=== PATIENT | male | born 1985 | race Caucasian/White ===

== ENCOUNTER 2022-03-19 12:10 | Emergency (ER) | payer SELFPAY ==
[~2022-03-19] VITALS: Ht 180 cm; Wt 83.0 kg
[2022-03-19 12:23] LABS: BASOPHILS # (AUTO) 0.1 10^3/uL (0.0-0.1); BASOPHILS % (AUTO) 1 % (0-10); EOSINOPHILS # (AUTO) 0.2 10^3/uL (0.0-0.3); EOSINOPHILS % (AUTO) 2 % (0-10); HEMATOCRIT 43 % (40-54); HEMOGLOBIN 15.4 g/dL (13.3-17.7); LYMPHOCYTES # (AUTO) 1.8 10^3/uL (1.0-4.0); LYMPHOCYTES % (AUTO) 22 % (12-44); MEAN CORPUSCULAR HEMOGLOBIN 30 pg (25-34); MEAN CORPUSCULAR HGB CONC 36 g/dL (32-36); MEAN CORPUSCULAR VOLUME 85 fL (80-99); MEAN PLATELET VOLUME 9.5 fL (9.0-12.2); MONOCYTES # (AUTO) 0.7 10^3/uL (0.0-1.0); MONOCYTES % (AUTO) 8 % (0-12); NEUTROPHILS # (AUTO) 5.4 10^3/uL (1.8-7.8); NEUTROPHILS % (AUTO) 67 % (42-75); PLATELET COUNT 293 10^3/uL (130-400); WHITE BLOOD COUNT 8.1 10^3/uL (4.3-11.0)
--- NOTE | 2022-03-19 12:23 | ED Chest Pain ---
General Stated Complaint: CHEST PAIN; HEAT EXPOSURE Source: patient Exam Limitations: no limitations History of Present Illness Date Seen by Provider: March 19, 2022 Time Seen by Provider: 12:10 Initial Comments Patient presents ER by private conveyance with significant other chief complaint that he was at work outside today and started getting some belly pain nausea sweating and for a bottle water and himself because he thought he was having heat exhaustion. He is never had that before. He is never had any heart disease. He does have hypertension but does not take any medicines for it nor follow-up with a doctor. He is a daily smoker and uses some cannabis and states he occasionally uses stimulants. He has not urinated much today. He does not have a history of GERD but he does have a pain in his chest pointing to his epigastric region osei and radiates upwards and he was starting to have some tingling in his left arm and hand. No primary family early onset coronary disease. No diabetes or hyperlipidemia. Allergies and Home Medications Allergies Coded Allergies: No Known Drug Allergies (Unverified , 03/19/22) Patient Home Medication List Home Medication List Reviewed: Yes Review of Systems Review of Systems Constitutional: No chills, No diaphoresis EENTM: No Blurred Vision, No Double Vision Respiratory: Denies Cough, Denies Shortness of Air Cardiovascular: See HPI, Chest Pain; Denies Edema; Lightheadedness Gastrointestinal: See HPI; Denies Abdomen Distended; Abdominal Pain; Denies Constipated, Denies Diarrhea; Nausea; Denies Poor Fluid Intake, Denies Vomiting Genitourinary: Denies Burning, Denies Discharge Musculoskeletal: No back pain, No joint pain All Other Systems Reviewed Negative Unless Noted: Yes Past Vzjpkzf-Iukpch-Peqnoz Hx Patient Social History Tobacco Use?: Yes Tobacco type used: Cigarettes Use of E-Cig and/or Vaping dev: No Substance use?: Yes Physical Exam Vital Signs Vital Signs - First Documented 03/19/22 12:13 Temp 36.7 Pulse 83 Resp 20 B/P (MAP) 146/72 (96) Pulse Ox 100 O2 Delivery Room Air Capillary Refill : Height, Weight, BMI Height: '" Weight: lbs. oz. kg; BMI Method: General Appearance: WD/WN, Mild Distress HEENT: PERRL/EOMI, Normal ENT Inspection; No Moist Mucous Membranes (Dry oral mucosa without lesion or) Neck: Full Range of Motion, Normal Inspection, Non Tender Respiratory: Lungs Clear, Normal Breath Sounds, No Accessory Muscle Use, No Respiratory Distress Cardiovascular: Regular Rate, Rhythm, No Edema, Normal Peripheral Pulses Gastrointestinal: Normal Bowel Sounds (Quiescent), No Organomegaly, Non Tender, Soft Extremity: Normal Capillary Refill, Normal Inspection, Normal Range of Motion, Non Tender Neurologic/Psychiatric: Alert, Oriented x3 Skin: Rash (Erythematous blanchable skin, warm and dry) Progress/Results/Core Measures Results/Orders Lab Results Laboratory Tests Test 03/19/22 12:18 Range/Units White Blood Count 8.1 4.3-11.0 10^3/uL Red Blood Count 5.06 4.30-5.52 10^6/uL Hemoglobin 15.4 13.3-17.7 g/dL Hematocrit 43 40-54 % Mean Corpuscular Volume 85 80-99 fL Mean Corpuscular Hemoglobin 30 25-34 pg Mean Corpuscular Hemoglobin Concent 36 32-36 g/dL Red Cell Distribution Width 11.9 10.0-14.5 % Platelet Count 293 130-400 10^3/uL Mean Platelet Volume 9.5 9.0-12.2 fL Immature Granulocyte % (Auto) 0 % Neutrophils (%) (Auto) 67 42-75 % Lymphocytes (%) (Auto) 22 12-44 % Monocytes (%) (Auto) 8 0-12 % Eosinophils (%) (Auto) 2 0-10 % Basophils (%) (Auto) 1 0-10 % Neutrophils # (Auto) 5.4 1.8-7.8 10^3/uL Lymphocytes # (Auto) 1.8 1.0-4.0 10^3/uL Monocytes # (Auto) 0.7 0.0-1.0 10^3/uL Eosinophils # (Auto) 0.2 0.0-0.3 10^3/uL Basophils # (Auto) 0.1 0.0-0.1 10^3/uL Immature Granulocyte # (Auto) 0.0 0.0-0.1 10^3/uL Prothrombin Time 13.2 12.2-14.7 SEC INR Comment 1.0 0.8-1.4 Activated Partial Thromboplast Time 27 24-35 SEC Sodium Level 135 135-145 MMOL/L Potassium Level 3.7 3.6-5.0 MMOL/L Chloride Level 100 98-107 MMOL/L Carbon Dioxide Level 21 21-32 MMOL/L Anion Gap 14 5-14 MMOL/L Blood Urea Nitrogen 23 H 7-18 MG/DL Creatinine 1.03 0.60-1.30 MG/DL Estimat Glomerular Filtration Rate 97 BUN/Creatinine Ratio 22 Glucose Level 103 70-105 MG/DL Calcium Level 9.8 8.5-10.1 MG/DL Corrected Calcium 8.5-10.1 MG/DL Magnesium Level 1.7 1.6-2.4 MG/DL Total Bilirubin 0.6 0.1-1.0 MG/DL Aspartate Amino Transf (AST/SGOT) 16 5-34 U/L Alanine Aminotransferase (ALT/SGPT) 15 0-55 U/L Alkaline Phosphatase 66 40-136 U/L Myoglobin 38.4 10.0-92.0 NG/ML Troponin I < 0.30 <0.30 NG/ML Total Protein 7.2 6.4-8.2 GM/DL Albumin 4.7 H 3.2-4.5 GM/DL Lipase 19 8-78 U/L My Orders Orders - ANABEL ANDERSON Cbc With Automated Diff (03/19/22 12:16) Magnesium (03/19/22 12:16) Chest 1 View Ap/Pa Only (03/19/22 12:16) Ekg Tracing (03/19/22 12:16) Comprehensive Metabolic Panel (03/19/22 12:16) Myoglobin Serum (03/19/22 12:16) Protime With Inr (03/19/22 12:16) Partial Thromboplastin Time (03/19/22 12:16) O2 (03/19/22 12:16) Monitor-Rhythm Ecg Trace Only (03/19/22 12:16) Lipid Panel (03/20/22 06:00) Aspirin Chewable Tablet (Baby Aspirin Ch (03/19/22 12:30) Ed Iv/Invasive Line Start (03/19/22 12:16) Lipase (03/19/22 12:16) Troponin I Fs (03/19/22 12:16) Ed Iv/Invasive Line Start (03/19/22 12:16) Lactated Ringers (Lr 1000 Ml Iv Solution (03/19/22 12:30) Lactated Ringers (Lr 1000 Ml Iv Solution (03/19/22 12:30) Pantoprazole Injection (Protonix Injecti (03/19/22 12:30) Ondansetron Injection (Zofran Injectio (03/19/22 12:30) Medications Given in ED Current Medications Medications Dose Ordered Sig/Eulogio Route Start Time Stop Time Status Last Admin Dose Admin Aspirin 324 mg ONCE ONCE PO 03/19/22 12:30 03/19/22 12:31 DC 03/19/22 12:24 324 MG Lactated Ringer's 1,000 ml @ 0 mls/hr Q0M ONCE IV 03/19/22 12:30 03/19/22 12:31 DC 03/19/22 12:24 999 MLS/HR Lactated Ringer's 1,000 ml @ 0 mls/hr Q0M ONCE IV 03/19/22 12:30 03/19/22 12:31 DC 03/19/22 13:25 1,000 MLS/HR Ondansetron HCl 8 mg ONCE ONCE IVP 03/19/22 12:30 03/19/22 12:31 DC 03/19/22 12:24 8 MG Pantoprazole 40 mg ONCE ONCE IV 03/19/22 12:30 03/19/22 12:31 DC 03/19/22 12:24 40 MG Vital Signs/I&O 03/19/22 12:13 Temp 36.7 Pulse 83 Resp 20 B/P (MAP) 146/72 (96) Pulse Ox 100 O2 Delivery Room Air Progress Progress Note #1: Time: 12:21 Progress Note Despite pouring water on himself he has no sweat on his forehead, arms or elsewhere. He does look like he had a heat injury. He is neurologically intact. His vital signs are okay with a heart rate in the 60s and a good blood pressure of 146/72 on presentation. He is not having any difficulty breathing. We will give him some aspirin and work him up for his heart however we will continue to treat his evident heat exhaustion with a couple liters of fluid. Chest x-ray. Electrolytes and labs. Pantoprazole for his burning sensation and ondansetron for his nausea. We will try GI cocktail after his nausea is under control. Progress Note #2: Time: 13:17 Progress Note After the pantoprazole he says his burning pain is gone. His nausea is gone and he is feeling much better. Again we will let him have another liter of fluids as he has not even had the urge to urinate yet. Will encourage him to follow-up with cardiology outpatient in a couple weeks if his delta troponin is negative. 1 points HEART Pathway Score. Low risk; 0.9-1.7% 30-day MACE Progress Note #3: Time: 13:58 Progress Note Patient states his symptoms are gone he is feeling much better and he would like to go home. He was explained that we would not be able to rule out significant coronary disease without a second troponin but he does not want to wait any longer. He was taken down to the bathroom to provide a urine specimen for drug screen for his work and came back stating he declined to do this and they will just wants to go home. We did discuss risks benefits and alternatives to leaving at this time and encouraged him to follow-up with a conductor pullman for an outpatient work-up. We provided him with an opportunity for some nausea medici carol to be sent to the pharmacy which he declined. He has gotten his total 2 L of fluids. We did reinforce the plan for him to take it easy for the next couple days and drink plenty of fluids. Return precautions were discussed. Initial ECG Impression Date: March 19, 2022 Initial ECG Impression Time: 12:14 Initial ECG Rate: 74 Initial ECG Rhythm: Normal Sinus Initial ECG Intervals: Normal Initial ECG Impression: Normal Initial ECG Comparisson: No Previous ECG Available Comment Normal sinus rhythm without clinically relevant ST elevation or depression Diagnostic Imaging Diagonstic Imaging: Xray Plain Films/CT/US/NM/MRI: chest Comments [facility] [place] [place] NAME: VALERIE CANCINO [facility] REC#: [id number] PT STATUS: REG ER : 1985 PHYSICIAN: ANABEL ANDERSON MD ADMIT DATE: 03/19/22/ER FS Signed Date of Exam:03/19/22 CHEST 1 VIEW AP/PA ONLY EXAMINATION: Chest 1 view HISTORY: Chest pain. Heat exhaustion. COMPARISON: None available. FINDINGS: The lung volumes are normal. No focal consolidation is seen. No large pleural effusion or pneumothorax is seen. The cardiomediastinal silhouette is normal in size and contour. No acute osseous abnormality is seen. IMPRESSION: 1. No acute pleuroparenchymal process. Dictated by: Dictated on workstation # [id number] Dict: 03/19/22 1244 Trans: 03/19/22 1249 [id number] Interpreted by: VADIM THOMAS DO Electronically signed by: VADIM THOMAS DO 03/19/22 1249 Reviewed: Reviewed by Me Departure Impression Primary Impression: Heat exhaustion Qualified Codes: T67.5XXA - Heat exhaustion, unspecified, initial encounter Additional Impression: Chest pain Qualified Codes: R07.9 - Chest pain, unspecified Disposition: 07 AGAINST MEDICAL ADVICE Condition: Against Medical Advice Departure-Patient Inst. Decision time for Depature: 13:59 Referrals: MEREDITH MELENDEZ MD [facility] NO,LOCAL PHYSICIAN (PCP) Primary Care Physician Patient Instructions: Heat Exhaustion and Heat Stroke (DC) Add. Discharge Instructions: Drink plenty of fluids. Sports drink such as Gatorade or Powerade are recommended. For the next 2 to 3 days you should stay in and take it easy while your body recovers. Follow-up in 1 to 2 weeks with a conductor pullman, Dr. Melendez by calling his clinic for an appointment to further evaluate the pain you are feeling in your chest. Return to the ER at anytime for further management of symptoms especially if they get worse or you develop more chest pain, shortness of air, or other worrisome symptoms. Work/School Note: Work Release Form Date Seen in the Emergency Department: March 19, 2022 Return to Work: March 24, 2022 Restrictions: No Restrictions Copy Copies To 1: MEREDITH MELENDEZ MD [facility] ANABEL ANDERSON March 19, 2022 12:23
[2022-03-19] MEDS ORDERED: LACTATED RINGERS 1,000 ML IV ONE ×2 (12:30)
[2022-03-19] MEDS ORDERED: PANTOPRAZOLE 40 MG (PROTONIX) VIAL IV ONE (12:30)
[2022-03-19] MEDS ORDERED: ONDANSETRON 4 MG/2 ML (SDV) Z0FRAN IVP ONE (12:30)
[2022-03-19] MEDS ORDERED: ASPIRIN 81 MG CHEW (CHILDREN'S ASA) PO ONE (12:30)
[2022-03-19 12:40] LABS: PROTHROMBIN TIME PATIENT 13.2 SEC (12.2-14.7)
--- NOTE | 2022-03-19 12:46 | Diagnostic Imaging Report ---
EXAMINATION: Chest 1 view HISTORY: Chest pain. Heat exhaustion. COMPARISON: None available. FINDINGS: The lung volumes are normal. No focal consolidation is seen. No large pleural effusion or pneumothorax is seen. The cardiomediastinal silhouette is normal in size and contour. No acute osseous abnormality is seen. IMPRESSION: 1. No acute pleuroparenchymal process. Dictated by: Dictated on workstation # [id number]
[2022-03-19 12:48] LABS: ALANINE AMINOTRANSFERASE 15 U/L (0-55); ALBUMIN 4.7 GM/DL (3.2-4.5); ALKALINE PHOSPHATASE 66 U/L (40-136); BILIRUBIN,TOTAL 0.6 MG/DL (0.1-1.0); BUN/CREATININE RATIO 22; CALCIUM 9.8 MG/DL (8.5-10.1); CARBON DIOXIDE 21 MMOL/L (21-32); CHLORIDE 100 MMOL/L (98-107); CREATININE SERUM 1.03 MG/DL (0.60-1.30); GFR ESTIMATED 97; GLUCOSE 103 MG/DL (70-105); MAGNESIUM 1.7 MG/DL (1.6-2.4); POTASSIUM 3.7 MMOL/L (3.6-5.0); SODIUM 135 MMOL/L (135-145); TOTAL PROTEIN 7.2 GM/DL (6.4-8.2)
[2022-03-19 12:49] LABS: LIPASE 19 U/L (8-78)
[2022-03-19 13:59] VITALS: BP 137/81
== END 2022-03-19 14:02 | disposition left against medical advice (07) ==
LOC: ER FS 12:12
DX: T67.5XXA Heat exhaustion, unspecified, initial encounter (principal); R07.89 Other chest pain; F17.210 Nicotine dependence, cigarettes, uncomplicated; X30.XXXA Exposure to excessive natural heat, initial encounter
CPT/HCPCS: 36415; 71045; 80053; 83690; 83735; 83874; 84484; 85025; 85610; 85730; 93005; 93041

== ENCOUNTER 2022-04-05 18:41 | Emergency (ER) | payer SELFPAY ==
[~2022-04-05] VITALS: Ht 177.8 cm; Wt 81.6 kg
[2022-04-05] MEDS ORDERED: NS IV 1000 ML 1,000 ML IV STA (18:56)
--- NOTE | 2022-04-05 18:59 | ED Chest Pain ---
General Stated Complaint: SOB/STOMACH BURNING/JAW PAIN Source: patient Exam Limitations: no limitations History of Present Illness Date Seen by Provider: April 05, 2022 Time Seen by Provider: 18:57 Initial Comments Patient is a 36-year-old male who presents ED with chest pain shortness of breath and anxiety. Patient states symptoms started 45 minutes ago while at home. He states he just got off work. Patient states he snorted "speed" which she has taken in the past. History of amphetamine use. Patient started having sharp chest pain with shortness of breath. States he feels anxious and having a panic attack. Patient was tachycardic on arrival. reports history of hypertension. History of smoking. Denies of any nausea, vomiting, abdominal pain, fever, visual changes. Patient states he feels "off". Patient states he bought the drug. Not sure if the medication is laced with any other stimulants. Allergies and Home Medications Allergies Coded Allergies: No Known Drug Allergies (Unverified , 03/19/22) Patient Home Medication List Home Medication List Reviewed: Yes Review of Systems Review of Systems Constitutional: No chills, No diaphoresis EENTM: No Blurred Vision, No Eye Pain Respiratory: Denies Cough, Denies Orthopnea; Shortness of Air Cardiovascular: Chest Pain; Denies Edema, Denies Irregular Heart Rate Gastrointestinal: Denies Abdominal Pain, Denies Diarrhea, Denies Nausea, Denies Vomiting Genitourinary: Denies Burning, Denies Discharge Musculoskeletal: No back pain, No joint pain Skin: No change in color, No change in hair/nails Psychiatric/Neurological: Anxiety All Other Systems Reviewed Negative Unless Noted: Yes Physical Exam Vital Signs Vital Signs - First Documented 04/05/22 19:00 Temp 36.4 Pulse 105 Resp 14 B/P (MAP) 159/102 (121) Pulse Ox 99 Capillary Refill : Height, Weight, BMI Height: '" Weight: lbs. oz. kg; 25.00 BMI Method: General Appearance: No Apparent Distress, WD/WN HEENT: PERRL/EOMI, TMs Normal, Normal ENT Inspection, Pharynx Normal Neck: Full Range of Motion, Normal Inspection, Non Tender, Supple Respiratory: Chest Non Tender, Lungs Clear, Normal Breath Sounds, No Accessory Muscle Use, No Respiratory Distress Cardiovascular: Regular Rate, Rhythm, No Edema, No Gallop, No JVD Gastrointestinal: Normal Bowel Sounds, No Organomegaly, No Pulsatile Mass, Non Tender Extremity: Normal Capillary Refill, Normal Inspection, Normal Range of Motion, Non Tender Neurologic/Psychiatric: Alert, Oriented x3, No Motor/Sensory Deficits, Normal Mood/Affect, 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 Skin: Normal Color, Warm/Dry Progress/Results/Core Measures Results/Orders Lab Results Laboratory Tests Test 04/05/22 19:03 Range/Units White Blood Count 10.3 4.3-11.0 10^3/uL Red Blood Count 5.39 4.30-5.52 10^6/uL Hemoglobin 16.4 13.3-17.7 g/dL Hematocrit 46 40-54 % Mean Corpuscular Volume 86 80-99 fL Mean Corpuscular Hemoglobin 30 25-34 pg Mean Corpuscular Hemoglobin Concent 36 32-36 g/dL Red Cell Distribution Width 11.8 10.0-14.5 % Platelet Count 382 130-400 10^3/uL Mean Platelet Volume 9.3 9.0-12.2 fL Immature Granulocyte % (Auto) 1 % Neutrophils (%) (Auto) 69 42-75 % Lymphocytes (%) (Auto) 21 12-44 % Monocytes (%) (Auto) 7 0-12 % Eosinophils (%) (Auto) 2 0-10 % Basophils (%) (Auto) 1 0-10 % Neutrophils # (Auto) 7.1 1.8-7.8 10^3/uL Lymphocytes # (Auto) 2.1 1.0-4.0 10^3/uL Monocytes # (Auto) 0.7 0.0-1.0 10^3/uL Eosinophils # (Auto) 0.2 0.0-0.3 10^3/uL Basophils # (Auto) 0.1 0.0-0.1 10^3/uL Immature Granulocyte # (Auto) 0.1 0.0-0.1 10^3/uL Prothrombin Time 12.9 12.2-14.7 SEC INR Comment 0.9 0.8-1.4 Activated Partial Thromboplast Time 29 24-35 SEC Sodium Level 139 135-145 MMOL/L Potassium Level 3.8 3.6-5.0 MMOL/L Chloride Level 102 98-107 MMOL/L Carbon Dioxide Level 20 L 21-32 MMOL/L Anion Gap 17 H 5-14 MMOL/L Blood Urea Nitrogen 17 7-18 MG/DL Creatinine 1.03 0.60-1.30 MG/DL Estimat Glomerular Filtration Rate 97 BUN/Creatinine Ratio 17 Glucose Level 141 H 70-105 MG/DL Calcium Level 9.9 8.5-10.1 MG/DL Corrected Calcium 8.5-10.1 MG/DL Magnesium Level 2.1 1.6-2.4 MG/DL Total Bilirubin 0.5 0.1-1.0 MG/DL Aspartate Amino Transf (AST/SGOT) 19 5-34 U/L Alanine Aminotransferase (ALT/SGPT) 26 0-55 U/L Alkaline Phosphatase 70 40-136 U/L Myoglobin 39.2 10.0-92.0 NG/ML Troponin I < 0.028 <0.028 NG/ML Total Protein 7.8 6.4-8.2 GM/DL Albumin 4.8 H 3.2-4.5 GM/DL Lipase 17 8-78 U/L Serum Alcohol < 10 <10 MG/DL My Orders Orders - ROBBY JEREZ PA Ekg Tracing (04/05/22 18:46) Cbc With Automated Diff (04/05/22 18:54) Magnesium (04/05/22 18:54) Chest 1 View, Ap/Pa Only (04/05/22 18:54) Ekg Tracing (04/05/22 18:54) Comprehensive Metabolic Panel (04/05/22 18:54) Myoglobin Serum (04/05/22 18:54) Protime With Inr (04/05/22 18:54) Partial Thromboplastin Time (04/05/22 18:54) Monitor-Rhythm Ecg Trace Only (04/05/22 18:54) Ed Iv/Invasive Line Start (04/05/22 18:54) Troponin I Ben (04/05/22 18:54) Lorazepam Injection (Ativan Injection) (04/05/22 19:00) Alcohol (04/05/22 18:55) Ns Iv 1000 Ml (Sodium Chloride 0.9%) (04/05/22 18:56) Lorazepam Injection (Ativan Injection) (04/05/22 20:00) Lipase (04/05/22 20:20) Medications Given in ED Current Medications Medications Dose Ordered Sig/Eulogio Route Start Time Stop Time Status Last Admin Dose Admin Lorazepam 1 mg ONCE ONCE IVP 04/05/22 19:00 04/05/22 19:01 DC 04/05/22 19:06 1 MG Lorazepam 1 mg ONCE ONCE IVP 04/05/22 20:00 04/05/22 20:01 DC 04/05/22 20:16 1 MG Vital Signs/I&O 04/05/22 19:00 Temp 36.4 Pulse 105 Resp 14 B/P (MAP) 159/102 (121) Pulse Ox 99 Departure Communication (PCP) Patient presents ED with chest pain after taking "speed". Has taken speed in the past. Patient was tachycardic. States he feels anxious. Patient was given 2 mg of Ativan with improvement of his symptoms. EKG showed sinus tachycardia at 103 bpm, QRS duration of 93 MS, QTc 381 MS. Normal troponin. Chest x-ray negative for acute abnormality. Lab work was otherwise unremarkable. Patient would not provide urine sample. After observation patient was requesting to be discharged. Denies of any other drug use such as cocaine. Discussed the risk of drug use and complications. Patient states he has used speed and snorts. Denies of any IV drug use. Patient is currently asymptomatic. Patient refusing to stay any longer and requesting his discharge paperwork. Provided outpatient follow-up. Impression Primary Impression: Chest pain Disposition: HOME, SELF-CARE Condition: Stable Departure-Patient Inst. Decision time for Depature: 20:54 Referrals: NO,LOCAL PHYSICIAN (PCP/Family) Primary Care Physician Patient Instructions: Chest Pain (DC) ROBBY JEREZ April 05, 2022 18:59
[2022-04-05] MEDS ORDERED: LORazepam INJ 2 MG/ML (ATIVAN) VIAL IVP ONE ×2 (19:00→20:00)
--- NOTE | 2022-04-05 19:12 | Diagnostic Imaging Report ---
CHEST 1 VIEW, AP/PA ONLY Indication: Chest pain. Comparison: 03/19/2022 Findings: No focal airspace disease in the visualized lungs. Please note that the posterior lower lobes are poorly evaluated by portable radiography. No pleural effusion or pneumothorax. Normal cardiomediastinal silhouette. Impression: 1. No acute cardiopulmonary process by portable radiography. Dictated by: Dictated on workstation # [id number]
[2022-04-05 19:13] LABS: BASOPHILS # (AUTO) 0.1 10^3/uL (0.0-0.1); BASOPHILS % (AUTO) 1 % (0-10); EOSINOPHILS # (AUTO) 0.2 10^3/uL (0.0-0.3); EOSINOPHILS % (AUTO) 2 % (0-10); HEMATOCRIT 46 % (40-54); HEMOGLOBIN 16.4 g/dL (13.3-17.7); LYMPHOCYTES # (AUTO) 2.1 10^3/uL (1.0-4.0); LYMPHOCYTES % (AUTO) 21 % (12-44); MEAN CORPUSCULAR HEMOGLOBIN 30 pg (25-34); MEAN CORPUSCULAR HGB CONC 36 g/dL (32-36); MEAN CORPUSCULAR VOLUME 86 fL (80-99); MEAN PLATELET VOLUME 9.3 fL (9.0-12.2); MONOCYTES # (AUTO) 0.7 10^3/uL (0.0-1.0); MONOCYTES % (AUTO) 7 % (0-12); NEUTROPHILS # (AUTO) 7.1 10^3/uL (1.8-7.8); NEUTROPHILS % (AUTO) 69 % (42-75); PLATELET COUNT 382 10^3/uL (130-400); WHITE BLOOD COUNT 10.3 10^3/uL (4.3-11.0)
[2022-04-05 19:29] LABS: INR 0.9 (0.8-1.4); PROTHROMBIN TIME PATIENT 12.9 SEC (12.2-14.7)
[2022-04-05 19:35] LABS: ALBUMIN 4.8 GM/DL (3.2-4.5); CHLORIDE 102 MMOL/L (98-107); POTASSIUM 3.8 MMOL/L (3.6-5.0); SODIUM 139 MMOL/L (135-145)
[2022-04-05 19:36] LABS: CALCIUM 9.9 MG/DL (8.5-10.1)
[2022-04-05 19:37] LABS: GLUCOSE 141 MG/DL (70-105); TOTAL PROTEIN 7.8 GM/DL (6.4-8.2)
[2022-04-05 19:38] LABS: CARBON DIOXIDE 20 MMOL/L (21-32)
[2022-04-05 19:39] LABS: BILIRUBIN,TOTAL 0.5 MG/DL (0.1-1.0)
[2022-04-05 19:41] LABS: ALKALINE PHOSPHATASE 70 U/L (40-136); CREATININE SERUM 1.03 MG/DL (0.60-1.30); GFR ESTIMATED 97
[2022-04-05 19:42] LABS: BUN/CREATININE RATIO 17
[2022-04-05 19:44] LABS: ALANINE AMINOTRANSFERASE 26 U/L (0-55); MAGNESIUM 2.1 MG/DL (1.6-2.4)
[2022-04-05 21:00] VITALS: BP 127/93
== END 2022-04-05 21:01 | disposition home or self-care (01) ==
LOC: EDUNIT# 18:41 → ER 18:42
DX: R07.89 Other chest pain (principal); R00.0 Tachycardia, unspecified; Z87.891 Personal history of nicotine dependence
CPT/HCPCS: 71045; 80053; 83690; 83735; 83874; 84484; 85025; 85610; 85730; 93041; 99284; G0480; 36415; 80320

== ENCOUNTER 2022-04-17 20:28 | Emergency (ER) | payer SELFPAY ==
[~2022-04-17] VITALS: Ht 177 cm; Wt 85.0 kg
[2022-04-17] MEDS ORDERED: NS IV 1000 ML 1,000 ML IV STA (20:48)
--- NOTE | 2022-04-17 20:51 | ED Chest Pain ---
General Chief Complaint: Respiratory Problems Stated Complaint: CHEST PAIN Nursing Triage Note: PT ARRIVAL TO ER VIA EMS WITH COMPLAINT OF CHEST PAIN AFTER SMOKING METH FROM A LIGHT BULB. PT STATES THAT HE HAS NEVER FELT THIS WAY AFTER METH USE. PT STATES THAT PAIN GOES UP INTO LEFT JAW. PATIENT TOOK 4 BABY ASPIRIN PRIOR TO EMS BEING CALLED. PT GIVEN 1 NITRO BY EMS WITH IMPROVEMENT. Source: patient Exam Limitations: no limitations (ROBBY JEREZ) History of Present Illness Date Seen by Provider: Apr 17, 2022 Time Seen by Provider: 20:49 Initial Comments Patient is a 36-year-old male who presents ED with chest pain. Chest pain is substernal described as pressure. Started about an hour and a half ago. Patient states he was putting a cover on a mattress. Pain started intensifying radiating to left shoulder and left-sided neck. Started sweating. Patient states no history of similar type pain in the past. Did use methamphetamine about 5 hours ago. He reports history of meth use but not daily. Has a history of smoking. Denies any of any other drug use. Denies history of hypertension, diabetes, high cholesterol. Family cardiac history. No recent travels or surgeries. Denies any leg swelling. Took 324 aspirin at home and was given sublingual nitro by EMS with improvement of pain. Rates pain 2 out of 10 at this time. Denies abdominal pain, vomiting, diarrhea, headache, dizziness, visual changes (ROBBY JEREZ) Allergies and Home Medications Allergies Coded Allergies: No Known Drug Allergies (Unverified , 03/19/22) Patient Home Medication List Home Medication List Reviewed: Yes (ROBBY JEREZ) Review of Systems Review of Systems Constitutional: No chills, No diaphoresis, No malaise, No weakness EENTM: No Blurred Vision, No Eye Pain Respiratory: Denies Cough, Denies Orthopnea; Shortness of Air Cardiovascular: Chest Pain Gastrointestinal: Denies Diarrhea; Nausea; Denies Vomiting Musculoskeletal: No back pain, No joint pain Skin: No change in color, No change in hair/nails (ROBBY JEREZ) All Other Systems Reviewed Negative Unless Noted: Yes (ROBBY JEREZ) Past Gugcfer-Jztyud-Egzvvu Hx Patient Social History Tobacco Use?: Yes Tobacco type used: Cigarettes Smoking Status: Current Everyday Smoker Use of E-Cig and/or Vaping dev: No Substance use?: Yes Substance type: Methamphetamine Substance frequency: Several times a month Alcohol Use?: Yes Alcohol type: Hard Liquor Alcohol Frequency: Several times a month Pt feels they are or have been: No (ROBBY JEREZ) Physical Exam Vital Signs Vital Signs - First Documented 04/17/22 20:34 Temp 36.4 Pulse 90 Resp 16 B/P (MAP) 156/98 (117) Pulse Ox 99 O2 Delivery Room Air (BRIANDA ARANA MD) Vital Signs Capillary Refill : Less Than 3 Seconds (ROBBY JEREZ) Height, Weight, BMI Height: '" Weight: lbs. oz. kg; 27.00 BMI Method: General Appearance: No Apparent Distress, WD/WN HEENT: PERRL/EOMI, TMs Normal, Normal ENT Inspection, Pharynx Normal Neck: Full Range of Motion, Normal Inspection, Non Tender, Supple Respiratory: Chest Non Tender, Lungs Clear, Normal Breath Sounds, No Accessory Muscle Use, No Respiratory Distress Cardiovascular: Regular Rate, Rhythm, No Edema Gastrointestinal: Normal Bowel Sounds, No Organomegaly, No Pulsatile Mass, Non Tender Extremity: Normal Capillary Refill, Normal Inspection, Normal Range of Motion, Non Tender, No Calf Tenderness Neurologic/Psychiatric: Alert, Oriented x3, No Motor/Sensory Deficits, Normal Mood/Affect, full decator operator II-XII Norm as Tested Skin: Normal Color, Warm/Dry (ROBBY JEREZ) Progress/Results/Core Measures Results/Orders Lab Results Laboratory Tests Test 04/17/22 20:31 Range/Units White Blood Count 9.4 4.3-11.0 10^3/uL Red Blood Count 4.89 4.30-5.52 10^6/uL Hemoglobin 14.9 13.3-17.7 g/dL Hematocrit 43 40-54 % Mean Corpuscular Volume 88 80-99 fL Mean Corpuscular Hemoglobin 31 25-34 pg Mean Corpuscular Hemoglobin Concent 35 32-36 g/dL Red Cell Distribution Width 12.1 10.0-14.5 % Platelet Count 304 130-400 10^3/uL Mean Platelet Volume 9.6 9.0-12.2 fL Immature Granulocyte % (Auto) 0 % Neutrophils (%) (Auto) 75 42-75 % Lymphocytes (%) (Auto) 16 12-44 % Monocytes (%) (Auto) 8 0-12 % Eosinophils (%) (Auto) 1 0-10 % Basophils (%) (Auto) 0 0-10 % Neutrophils # (Auto) 7.1 1.8-7.8 10^3/uL Lymphocytes # (Auto) 1.5 1.0-4.0 10^3/uL Monocytes # (Auto) 0.7 0.0-1.0 10^3/uL Eosinophils # (Auto) 0.1 0.0-0.3 10^3/uL Basophils # (Auto) 0.0 0.0-0.1 10^3/uL Immature Granulocyte # (Auto) 0.0 0.0-0.1 10^3/uL Prothrombin Time 13.2 12.2-14.7 SEC INR Comment 1.0 0.8-1.4 Activated Partial Thromboplast Time 28 24-35 SEC Sodium Level 140 135-145 MMOL/L Potassium Level 3.8 3.6-5.0 MMOL/L Chloride Level 105 98-107 MMOL/L Carbon Dioxide Level 22 21-32 MMOL/L Anion Gap 13 5-14 MMOL/L Blood Urea Nitrogen 12 7-18 MG/DL Creatinine 1.00 0.60-1.30 MG/DL Estimat Glomerular Filtration Rate 101 BUN/Creatinine Ratio 12 Glucose Level 108 H 70-105 MG/DL Calcium Level 9.5 8.5-10.1 MG/DL Corrected Calcium 9.2 8.5-10.1 MG/DL Magnesium Level 2.0 1.6-2.4 MG/DL Total Bilirubin 0.5 0.1-1.0 MG/DL Aspartate Amino Transf (AST/SGOT) 68 H 5-34 U/L Alanine Aminotransferase (ALT/SGPT) 42 0-55 U/L Alkaline Phosphatase 73 40-136 U/L Myoglobin 129.9 H 10.0-92.0 NG/ML Troponin I < 0.028 <0.028 NG/ML B-Type Natriuretic Peptide 12.3 <100.0 PG/ML Total Protein 7.0 6.4-8.2 GM/DL Albumin 4.4 3.2-4.5 GM/DL Lipase 19 8-78 U/L BRIANDA NEFF MD) My Orders Orders - BRIANDA ARANA MD Ekg Tracing (04/17/22 20:31) (BRIANDA ARANA MD) Medications Given in ED Current Medications Medications Dose Ordered Sig/Eulogio Route Start Time Stop Time Status Last Admin Dose Admin Lorazepam 1 mg ONCE ONCE IVP 04/17/22 21:00 04/17/22 21:01 DC 04/17/22 20:59 1 MG (BRIANDA ARANA MD) Vital Signs/I&O 04/17/22 04/17/22 20:34 22:50 Temp 36.4 Pulse 90 93 Resp 16 18 B/P (MAP) 156/98 (117) 152/98 Pulse Ox 99 98 O2 Delivery Room Air Room Air (BRIANDA ARANA MD) Blood Pressure Mean: 117 Departure Communication (PCP) Patient is a 36-year-old male presents ED with chest pain. This occurred 1 hour before arrival. Chest pain was rated 2 out of 10. Patient Was given sublingual nitro by EMS and took full aspirin at home. No known history of coronary artery disease. Reports methamphetamine use 5 hours prior. He states he was putting on sheets on a mattress. Patient EKG showed normal sinus rhythm. Patient was given a dose of Ativan for the continued chest tightness. Patient refused to provide any urine sample. Patient had a slight increase in myoglobin but normal troponin. Normal BNP. Chest x-ray negative for pneumonia, mediastinal widening, pleural effusion, pneumothorax. Lab work was otherwise unremarkable. Patient pain resolved here. Patient has a heart score of 1. Recommend serial troponin due to the recent chest pain. Patient refused staying and requesting to be discharge. Discussed the risk as not able to rule out severity of coronary artery disease. Patient acknowledges. Recommend outpatient follow-up with primary care physician. Provided cardiology outpatient follow-up for this continued pain. He reports history of palpitations. Would likely benefit with Holter monitor or further evaluation with echocardiogram. Patient acknowledges. (ROBBY JEREZ) Impression Primary Impression: Chest pain Disposition: HOME, SELF-CARE Condition: Stable Departure-Patient Inst. Decision time for Depature: 22:24 (ROBBY JEREZ) Referrals: [facility]/MEREDITH NIELSEN MD FACP FACC CCDS NO,LOCAL PHYSICIAN (PCP) Primary Care Physician Patient Instructions: Chest Pain ATTENDING PHYSICIAN NOTE: I was physically present as attending physician in the emergency department during the care of this patient, but I was not directly involved in the decision making or delivery of care for this patient. (BRIANDA ARANA MD) ROBBY JEREZ Apr 17, 2022 20:51 BRIANDA ARANA MD Apr 18, 2022 04:10
[2022-04-17 20:58] LABS: BASOPHILS % (AUTO) 0 % (0-10); EOSINOPHILS # (AUTO) 0.1 10^3/uL (0.0-0.3); EOSINOPHILS % (AUTO) 1 % (0-10); HEMATOCRIT 43 % (40-54); HEMOGLOBIN 14.9 g/dL (13.3-17.7); LYMPHOCYTES # (AUTO) 1.5 10^3/uL (1.0-4.0); LYMPHOCYTES % (AUTO) 16 % (12-44); MEAN CORPUSCULAR HEMOGLOBIN 31 pg (25-34); MEAN CORPUSCULAR HGB CONC 35 g/dL (32-36); MEAN CORPUSCULAR VOLUME 88 fL (80-99); MEAN PLATELET VOLUME 9.6 fL (9.0-12.2); MONOCYTES # (AUTO) 0.7 10^3/uL (0.0-1.0); MONOCYTES % (AUTO) 8 % (0-12); NEUTROPHILS # (AUTO) 7.1 10^3/uL (1.8-7.8); NEUTROPHILS % (AUTO) 75 % (42-75); PLATELET COUNT 304 10^3/uL (130-400); WHITE BLOOD COUNT 9.4 10^3/uL (4.3-11.0)
[2022-04-17] MEDS ORDERED: LORazepam INJ 2 MG/ML (ATIVAN) VIAL IVP ONE (21:00)
[2022-04-17 21:09] LABS: PROTHROMBIN TIME PATIENT 13.2 SEC (12.2-14.7)
--- NOTE | 2022-04-17 21:19 | Diagnostic Imaging Report ---
INDICATION: Chest pain. EXAMINATION: Portable chest at 9:14 PM. Heart size and pulmonary vascularity are normal. Lungs are clear. There are no effusions or pneumothoraces. IMPRESSION: No acute abnormalities in the chest. Dictated by: Dictated on workstation # [id number]
[2022-04-17 21:38] LABS: ALBUMIN 4.4 GM/DL (3.2-4.5); BILIRUBIN,TOTAL 0.5 MG/DL (0.1-1.0); CALCIUM 9.5 MG/DL (8.5-10.1); POTASSIUM 3.8 MMOL/L (3.6-5.0)
[2022-04-17 21:52] LABS: LIPASE 19 U/L (8-78)
[2022-04-17 22:50] VITALS: BP 152/98
== END 2022-04-17 22:38 | disposition home or self-care (01) ==
LOC: EDUNIT# 20:28 → ER 20:29
DX: R07.2 Precordial pain (principal); F17.210 Nicotine dependence, cigarettes, uncomplicated
CPT/HCPCS: 36415; 71045; 80053; 83690; 83735; 83874; 83880; 84484; 85025; 85610; 85730; 93005; 93041